=== PATIENT | female | born 1985 | race Caucasian/White ===

== ENCOUNTER 2017-10-24 12:46 | Inpatient (IN) | payer OTHER ==
[2017-10-24 13:05] VITALS: BMI 24.3
[2017-10-24] MEDS ORDERED: ONDANSETRON 4 MG/2 ML VIAL IVPUSH PRN (13:35)
[2017-10-24] MEDS ORDERED: morphine SULFATE/Preservative Free 0.5 MG/ML (1cc Syringe) EP ONE (13:35)
[2017-10-24] MEDS ORDERED: ceFAZolin SODIUM 1 GM VIAL ONE ×2 (13:42→16:57)
[2017-10-24] MEDS ORDERED: CITRIC ACID/SODIUM CITRATE 30 ML UNIT-DOSE CUP PO ONE (14:00)
[2017-10-24] MEDS ORDERED: ELECTROLYTE-148 SOLN 1,000 ML IV ONE (14:00)
[2017-10-24] MEDS ORDERED: ELECTROLYTE-148 SOLN 1,000 ML IV SCH ×2 (14:00)
--- NOTE | 2017-10-24 14:06 | HP ---
Past Medical History - Primary Care Physician PCP:: Miguel Ángel Lloyd - Admission Chief Complaint: 39 weeks, previous c/s, for repeat c/s History of Present Illness: 32 yo f 39 weeks, with previous c/s , request of repeat c/s, cx clp. vx -3 mi, fhr cat 1, risks discussed History Source: Patient Limitations to Obtaining History: No Limitations - Past Medical History ...: 2 ...Para: 1 ...Term: 1 ...: 0 ...Spon : 0 ...Induced : 0 ...Multiple Gestation: 0 ...LMP: 01/24/17 ... Weeks Gestation by Dates: 39.0 ...EDC by Dates: 10/31/17 ...EDC by Sono: 10/31/17 - Past Surgical History Past Surgical History: Yes: Hx Myomectomy: No Hx Transabdominal Cerclage: No - Smoking History Smoking history: Never smoked Have you smoked in the past 12 months: No - Alcohol/Substance Use Hx Alcohol Use: No - Social History Usual Living Arrangement: Yes: With Spouse History of Recent Travel: No Home Medications - Allergies Allergies/Adverse Reactions: Allergies Allergy/AdvReac Type Severity Reaction Status Date / Time No Known Allergies Allergy Verified 10/24/17 12:56 - Home Medications Home Medications: Ambulatory Orders Pnv,Calcium 72/Iron/Folic Acid [ Plus Tablet] 1 each PO DAILY 10/24/17 Review of Systems - Review of Systems Constitutional: reports: No Symptoms Eyes: reports: No Symptoms HENT: reports: No Symptoms Neck: reports: No Symptoms Cardiovascular: reports: No Symptoms Respiratory: reports: No Symptoms Gastrointestinal: reports: No Symptoms Genitourinary: reports: No Symptoms Breasts: reports: No Symptoms Reported Musculoskeletal: reports: No Symptoms Integumentary: reports: No Symptoms Neurological: reports: No Symptoms Endocrine: reports: No Symptoms Hematology/Lymphatic: reports: No Symptoms Psychiatric: reports: No Symptoms Physical Exam - Maternity Vital Signs: Vital Signs Temperature 98.2 F 10/24/17 12:58 Pulse Rate 86 10/24/17 12:58 Respiratory Rate 18 10/24/17 12:58 Blood Pressure 104/67 10/24/17 12:58 O2 Sat by Pulse Oximetry (%) Constitutional: Yes: Well Nourished, No Distress, Calm Eyes: Yes: WNL, Conjunctiva Clear, EOM Intact HENT: Yes: WNL, Atraumatic, Normocephalic Neck: Yes: WNL, Supple, Trachea Midline Cardiovascular: Yes: WNL, Regular Rate and Rhythm Breast(s): Yes: WNL - Abdominal Exam/OB Fundal Height: 38 Contractions: Yes Regularity: Irregular Intensity: Unaware Monitor Mode: External Heart Rate Location: [facility] Category: I Accelerations: Uniform Decelerations: None - Vaginal Exam/OB Vaginal Bleediing: No Speculum Exam: No Dilatation (cm): closed Effacement (%): 0 Amniotic Membrane Status: Intact Presentation: Vertex/Position Station: -3 - Physical Exam Musculoskeletal: Yes: WNL Edema: Yes Edema: LLE: Trace, RLE: Trace Integumentary: Yes: WNL Psychiatric: Yes: WNL Hemorrhage Risk Assessment - Risk Factors Medium Risk Factors: Yes: Prior , uterine surgery,or multiple laparotomies Risk Score: 1 Risk Level: Medium Risk Problem List - Problems (1) with 39 completed weeks gestation Code(s): Z3A.39 - 39 WEEKS GESTATION OF (2) Previous section complicating Code(s): O34.219 - MATERNAL CARE FOR UNSP TYPE SCAR FROM PREVIOUS DEL Assessment/Plan repeat c/s rba discussed
[2017-10-24] MEDS ORDERED: ePHEDrine SULFATE 50 MG/1 ML AMPULE ONE (14:12)
[2017-10-24] MEDS ORDERED: OXYTOCIN 10 UNITS/ML VIAL ONE (14:13)
[2017-10-24] MEDS ORDERED: IBUPROFEN 800 MG/8 ML IJ IVPB PRN (14:51)
[2017-10-24] MEDS ORDERED: BENZOCAINE 28 GM HEMORRHOIDAL OINTMENT PR PRN (14:51)
[2017-10-24] MEDS ORDERED: IBUPROFEN 600 MG TABLET (FP) PO PRN (14:51)
[2017-10-24] MEDS ORDERED: WITCH HAZEL 50% (TUCKS) 40 PAD/JAR PAD TP PRN (14:51)
[2017-10-24] MEDS ORDERED: BENZOCAINE 20% 57 GM BOTTLE TP PRN (14:51)
[2017-10-24] MEDS ORDERED: METHYLERGONOVINE MALEATE 0.2 MG/1 ML AMP IM PRN (14:51)
[2017-10-24] MEDS ORDERED: oxyCODONE HCL 5 MG TABLET PO PRN ×2 (14:51)
[2017-10-24] MEDS ORDERED: diphenhydrAMINE HCL 25 MG CAPSULE (FP) PO PRN (14:51)
[2017-10-24] MEDS ORDERED: DEXTROSE 5%-LACTATED RINGERS 1,000 ML IV SCH (15:00)
[2017-10-24] MEDS ORDERED: OXYTOCIN 20 UNITS in 0.9% NS 20 UNIT/1,000 ML INFUS.BAG IV SCH (15:00)
[2017-10-24] MEDS ORDERED: DEXTROSE 5%-WATER - 50 ML IVPB ONE (16:57)
[2017-10-24] MEDS: CEFAZOLIN 1 GM in DEXTROSE 5%-WATER - 50 ML IVPB SCH (17:03)
--- NOTE | 2017-10-25 01:03 | OP ---
DATE OF OPERATION: 10/24/2017 PREOPERATIVE DIAGNOSIS: 39 weeks, previous section, request of repeat section. POSTOPERATIVE DIAGNOSIS: 39 weeks, previous section, request of repeat section. PROCEDURE: Repeat low segment transverse section. SURGEON: Maciej Lloyd M.D. SHIP PILOT DISPATCHER: Karl Fuentes ANESTHESIA: Spinal. ANESTHESIOLOGIST: Jose Schaefer M.D. ESTIMATED BLOOD LOSS: 500 mL. OPERATION: Patient was taken to operating room with adequate spinal anesthesia. Abdomen and perineum were prepped and draped. Pfannenstiel abdominal skin incision was made. Abdominal wall was cut layer by layer until the peritoneum was exposed and incised. Upon entering the abdominal cavity, the lower uterine segment was identified, and uterovesical fold of the peritoneum was established. The bladder was pushed down. Then with the lower blade of the [place] retractor in the pelvis, a low transverse incision was made. The incision extended laterally. Amniotic sac was entered. Clear fluid. Head delivered from right occipital transverse position. Nasopharynx was suctioned. A live baby was delivered without any difficulty. Placenta was delivered manually. Uterine cavity was cleared of all remaining tissue. Uterine incision was closed in 2 layers, the 1st layer with 0 Biosyn continuous suture, the 2nd layer with 0 Biosyn imbricating the 1st layer. Bladder flap was closed with 0 Biosyn continuous suture. Both tubes and ovaries were checked and were normal. No active bleeding was seen. All the lap, sponge, and instrument counts were correct. Peritoneum was closed with 0 Biosyn continuous suture. Muscles were brought together interrupted suture with 0 Biosyn. Fascia was closed with 0 Biosyn continuous sutures. Subcutaneous fat with interrupted sutures 0 Biosyn, and the skin was closed with lindsey. The patient tolerated the procedure well and left the OR in good condition. MACIEJ LLOYD M.D. [id number]
[2017-10-25] MEDS ORDERED: ceFAZolin SODIUM 1 GM VIAL ONE (01:04)
[2017-10-25] MEDS ORDERED: DEXTROSE 5%-WATER - 50 ML IVPB ONE (01:04)
[2017-10-25] MEDS: CEFAZOLIN 1 GM in DEXTROSE 5%-WATER - 50 ML IVPB SCH (01:09)
--- NOTE | 2017-10-25 07:26 | PN ---
Progress Note (short form) - Note Progress Note: pod 1, s/p repeat c/s . doing well Last Vital Signs Temp Pulse Resp BP Pulse Ox 98.3 F 69 20 115/63 100 10/25/17 06:00 10/25/17 06:00 10/25/17 06:00 10/25/17 06:00 10/24/17 15:45 abdomen soft, no distension, no cva incision dry, clean no calf tenderness oseguera clear fluid no calf tenderness plan ambulate, advance diet cbc, pain management Problem List - Problems (1) with 39 completed weeks gestation Code(s): Z3A.39 - 39 WEEKS GESTATION OF (2) Previous section complicating Code(s): O34.219 - MATERNAL CARE FOR UNSP TYPE SCAR FROM PREVIOUS DEL
[2017-10-25 08:21] LABS: BASO % 0.1 % (0-2.0); EOS % 0.7 % (0-4.5); HEMATOCRIT 35.5 % (32.4-45.2); HEMOGLOBIN 11.9 GM/dL (10.7-15.3); LYMPH % 9.3 % (8-40); MCH 28.9 pg (25.7-33.7); MCHC 33.6 g/dl (32.0-36.0); MEAN CELL VOLUME 85.9 fl (80-96); MEAN PLT VOLUME 9.1 fl (7.5-11.1); MONO % 9.3 % (3.8-10.2); NEUT % 80.6 % (42.8-82.8); PLATELET COUNT 231 K/MM3 (134-434); RBC 4.13 M/mm3 (3.60-5.2); RDW 14.4 % (11.6-15.6); WHITE BLOOD COUNT 16.7 K/mm3 (4.0-10.0)
--- NOTE | 2017-10-25 09:03 | PN ---
Progress Note (short form) - Note Progress Note: Anesthesia POD#1 S/P Repeat under Spinal anesthesia and DM VSS,no N/V,bearable pain,legs strong,mild Itch. Lexie Solano MD.
[2017-10-25] MEDS: ENOXAPARIN NA (PORCINE) 40 MG/0.4 ML DISP.SYRIN SQ SCH (09:47)
[2017-10-25] MEDS ORDERED: BISACODYL 10 MG SUPP.RECT RC PRN (14:51)
[2017-10-25] MEDS ORDERED: ACETAMINOPHEN 325 MG TABLET (FP) ONE (17:10)
[2017-10-25] MEDS: IBUPROFEN 600 MG TABLET (FP) PO PRN (17:19)
[2017-10-25] MEDS: SIMETHICONE 80 MG TAB.CHEW (FP) PO PRN (17:22)
[2017-10-25] MEDS: ACETAMINOPHEN 325 MG TABLET (FP) PO PRN ×2 (17:22→18:53)
[2017-10-25] MEDS: SENNOSIDES/DOCUSATE COMBO (SENNA PLUS) TABLET (UD) PO PRN (22:11)
[2017-10-26] MEDS: SIMETHICONE 80 MG TAB.CHEW (FP) PO PRN ×2 (08:11→16:42)
[2017-10-26] MEDS: ACETAMINOPHEN 325 MG TABLET (FP) PO PRN ×2 (08:24→16:41)
[2017-10-26] MEDS: IBUPROFEN 600 MG TABLET (FP) PO PRN ×2 (08:25→16:42)
--- NOTE | 2017-10-26 09:00 | PN ---
Progress Note (short form) - Note Progress Note: pod 2 , s/p repeat c/s , ambulating , passing gas CBC, BMP 10/25/17 07:40 Last Vital Signs Temp Pulse Resp BP Pulse Ox 98.2 F 82 20 107/70 100 10/25/17 22:00 10/25/17 22:00 10/25/17 22:00 10/25/17 22:00 10/24/17 15:45 abdomaen soft, no distension, no cva incision dry , clean no calf tenderness plan ambulate , cbc in am Problem List - Problems (1) with 39 completed weeks gestation Code(s): Z3A.39 - 39 WEEKS GESTATION OF (2) Previous section complicating Code(s): O34.219 - MATERNAL CARE FOR UNSP TYPE SCAR FROM PREVIOUS DEL
[2017-10-26] MEDS: ENOXAPARIN NA (PORCINE) 40 MG/0.4 ML DISP.SYRIN SQ SCH (10:03)
[2017-10-26] MEDS: SENNOSIDES/DOCUSATE COMBO (SENNA PLUS) TABLET (UD) PO PRN (20:52)
[2017-10-27] MEDS: IBUPROFEN 600 MG TABLET (FP) PO PRN ×2 (07:38→20:10)
[2017-10-27] MEDS: ACETAMINOPHEN 325 MG TABLET (FP) PO PRN ×2 (07:38→20:11)
[2017-10-27 07:54] LABS: BASO % 0.3 % (0-2.0); EOS % 2.2 % (0-4.5); HEMATOCRIT 32.2 % (32.4-45.2); LYMPH % 18.4 % (8-40); MCH 29.3 pg (25.7-33.7); MCHC 34.3 g/dl (32.0-36.0); MEAN CELL VOLUME 85.3 fl (80-96); MEAN PLT VOLUME 8.5 fl (7.5-11.1); MONO % 7.5 % (3.8-10.2); NEUT % 71.6 % (42.8-82.8); PLATELET COUNT 248 K/MM3 (134-434); RBC 3.77 M/mm3 (3.60-5.2); RDW 14.3 % (11.6-15.6); WHITE BLOOD COUNT 11.9 K/mm3 (4.0-10.0)
[2017-10-27] MEDS: ENOXAPARIN NA (PORCINE) 40 MG/0.4 ML DISP.SYRIN SQ SCH (10:28)
--- NOTE | 2017-10-27 14:06 | PN ---
Progress Note (short form) - Note Progress Note: pod 3 CBC, BMP 10/27/17 07:36 Last Vital Signs Temp Pulse Resp BP Pulse Ox 99 F 79 20 97/66 100 10/27/17 08:05 10/27/17 08:05 10/27/17 08:05 10/27/17 08:05 10/24/17 15:45 abdomen soft, no distension, no cva BS present incision dry, clean no calf tenderness plan ambulate , plan for d/c home in am Problem List - Problems (1) with 39 completed weeks gestation Code(s): Z3A.39 - 39 WEEKS GESTATION OF (2) Previous section complicating Code(s): O34.219 - MATERNAL CARE FOR UNSP TYPE SCAR FROM PREVIOUS DEL
[2017-10-27] MEDS: SENNOSIDES/DOCUSATE COMBO (SENNA PLUS) TABLET (UD) PO PRN (20:10)
[2017-10-27] MEDS: SIMETHICONE 80 MG TAB.CHEW (FP) PO PRN (20:10)
[2017-10-28 07:54] VITALS: BP 114/74; PULSE 64; TEMP 98.9
--- NOTE | 2017-10-28 08:04 | DS ---
Physical Exam-SENIOR EXECUTIVE ASSISTANT Vital Signs: Vital Signs Temperature 98.9 F 10/28/17 07:53 Pulse Rate 64 10/28/17 07:53 Respiratory Rate 20 10/28/17 07:53 Blood Pressure 114/74 10/28/17 07:53 O2 Sat by Pulse Oximetry (%) 100 10/24/17 15:45 Constitutional: Yes: Well Nourished, No Distress, Calm Eyes: Yes: WNL, Conjunctiva Clear, EOM Intact HENT: Yes: WNL, Atraumatic, Normocephalic Neck: Yes: WNL, Supple, Trachea Midline Cardiovascular: Yes: WNL, Regular Rate and Rhythm Respiratory: Yes: WNL, Regular, CTA Bilaterally Gastrointestinal: Yes: WNL ...Rectal Exam: Yes: WNL Renal/: Yes: WNL ....Post : Yes: Uterus firm, Uterus non-tender, Slight lochia rubra Breast(s): Yes: WNL Musculoskeletal: Yes: WNL Extremities: Yes: WNL Edema: No Integumentary: Yes: WNL Wound/Incision: Yes: Clean/Dry, Well Approximated, [place] Intact Neurological: Yes: WNL, Alert, Oriented ...Motor Strength: WNL Psychiatric: Yes: WNL, Alert, Oriented Labs: CBC, BMP 10/27/17 07:36 Delivery - Delivery Section: Repeat (no complication), Low Flap Transverse Type of Anesthesia: Spinal Episiotomy/Laceration: None EBL (cc): 500 Delivery, Single - Stages of Labor Date of Delivery: 10/24/17 Time of Delivery: 14:15 Time Placenta Delivered: 14:16 Placenta: Yes: Expressed - Condition of Fence Builder/Accreditation Specialist Present: [place]: Lauren Cotter Infant Gender: Male Weight: 9 lb 2 oz Position: Right, OP Total Hours ROM (Hrs/Mins): 2mins - 1 Minute Total Score: 9 5 Minutes Total Score: 9 - [place] Feeding Plan Initial Plan: Exclusive throughout hospitalization Discharge Summary Reason For Visit: Current Active Problems with 39 completed weeks gestation (Acute) Previous section complicating (Acute) Procedures: Principal: repeat LST c/s Hospital Course: no complication Condition: Good - Instructions Diet, Activity, Other Instructions: regular diet, follow up [facility] care 1 week, if pain, fever, heavy vaginal bleeding call MD Referrals: [facility] (Marisel Stock) [Outside] Miguel Ángel Lloyd MD [Staff Physician] - Disposition: HOME - Home Medications Comprehensive Discharge Medication List: Ambulatory Orders Ibuprofen [Motrin -] 600 mg PO TID #90 tablet 10/24/17 Pnv,Calcium 72/Iron/Folic Acid [ Plus Tablet] 1 each PO DAILY 10/24/17
[2017-10-28] MEDS: ENOXAPARIN NA (PORCINE) 40 MG/0.4 ML DISP.SYRIN SQ SCH (09:37)
[2017-10-28] MEDS: IBUPROFEN 600 MG TABLET (FP) PO PRN (09:38)
[2017-10-28] MEDS: SIMETHICONE 80 MG TAB.CHEW (FP) PO PRN (09:38)
[2017-10-28] MEDS: ACETAMINOPHEN 325 MG TABLET (FP) PO PRN (09:38)
--- NOTE | 2017-11-01 18:29 | PATH ---
Surgical Pathology Report Patient Name: KATHY KWOK [facility]. Rec. #: [id number] /Age/Gender: 1985 (Age: 32) / F Account: [id number] Location: [facility] OBS/REGISTERED DIETICIAN Taken: 10/24/2017 Received: 10/25/2017 Reported: 11/01/2017 Physicians: Miguel Ángel Lloyd M.D. Specimen(s) Received PLACENTA Clinical History 08/2006 Final Diagnosis PLACENTA, SECTION: 624 g THIRD TRIMESTER PLACENTA WITH TRIVASCULAR UMBILICAL CORD AND UNREMARKABLE PLACENTAL MEMBRANES. Electronically Signed Fátima Ibarra M.D. Gross Description The specimen is received fresh labeled placenta and is a 624 gram, 19.0 x 15.0 x 3.5 cm. placenta with attached membranes and umbilical cord. The attached membranes are hanson, translucent with focal opacities and insert marginally. The umbilical cord measures 35 cm. in length and averages 1.3 cm. in diameter. The cord inserts eccentrically, 5 cm. to the nearest margin. No true knots or strictures are identified. Cut surface of the umbilical cord reveals 3 vessels. The surface is wu blue with moderate fibrin deposition and appropriate caliber vessels. The maternal surface is red-brown with focal defects. Sectioning reveals red-brown, spongy parenchyma. No lesions are identified. Marketing Research Intern sections are submitted in three cassettes as follows: 1- membrane rolls and umbilical cord; 2-3- full thickness sections of placenta. 10/31/2017 [facility]10/31/2017
== END 2017-10-28 14:35 | disposition home or self-care (01) | DRG 540 ==
LOC: JLDR 12:46 → J3W 16:16
PROVIDERS: ADMIT Obstetrics & Gynecology; ATTEND Obstetrics & Gynecology
PROC: 10D00Z1 Extraction of Products of Conception, Low, Open Approach (ICD-10-PCS; principal; 2017-10-24)
DX: O34.211 Maternal care for low transverse scar from previous cesarean delivery (principal); N85.8 Other specified noninflammatory disorders of uterus; Z3A.39 39 weeks gestation of pregnancy; Z37.0 Single live birth
CPT/HCPCS: 36415; 85025; 88307-TC